=== PATIENT | female | born 1990 | race Caucasian/White ===

== ENCOUNTER 2024-10-05 17:09 | Emergency (ER) | payer BC ==
[~2024-10-05] VITALS: Ht 170.2 cm; Wt 63.0 kg
[2024-10-05] MEDS ORDERED: SIME80TA15 PO (18:20)
[2024-10-05] MEDS ORDERED: DOCU-141 PO (18:20)
[2024-10-05] MEDS ORDERED: MAGN100T6 PO (18:20)
[2024-10-05 18:45] LABS: BASOPHILS % (AUTO) 0.6 % (0.0-2.0); EOSINOPHILS # (AUTO) 0.1 K/uL (0.0-0.7); EOSINOPHILS % (AUTO) 1.6 % (0.0-7.0); HEMATOCRIT 36.8 % (31.2-41.9); HEMOGLOBIN 12.4 g/dL (10.9-14.3); LYMPHOCYTES # (AUTO) 1.6 K/uL (0.8-4.8); LYMPHOCYTES % (AUTO) 37.9 % (20.5-51.5); MEAN CORPUSCULAR HEMOGLOBIN 29.3 uug (24.7-32.8); MEAN CORPUSCULAR HGB CONC 34 g/dL (32.3-35.6); MEAN CORPUSCULAR VOLUME 87.1 fL (75.5-95.3); MONOCYTES # (AUTO) 0.5 K/uL (0.1-1.30); MONOCYTES % (AUTO) 11.7 % (0.0-11.0); NEUTROPHILS # (AUTO) 2.1 K/uL (1.8-8.9); NEUTROPHILS % (AUTO) 48.2 % (38.5-71.5); PLATELET COUNT (AUTO) 262 K/uL (179-408); RED BLOOD CELL COUNT(AUTO) 4.22 MIL/uL (3.63-4.92); RED CELL DISTRIBUTION WIDTH 12.1 % (12.3-17.7); WHITE BLOOD COUNT (AUTO) 4.3 K/uL (3.8-11.8)
[2024-10-05 18:50] LABS: DIFFERENTIAL COMMENT 1
[2024-10-05 18:53] LABS: CALCIUM 8.9 mg/dL (8.5-10.1); CREATININE 0.9 mg/dL (0.6-1.3)
[2024-10-05 18:54] LABS: *URINE HCG, QUAL NEGATIVE (NEGATIVE)
[2024-10-05 21:07] VITALS: BP 110/68; TEMP 98; O2SAT 98
== END 2024-10-05 21:07 | disposition home or self-care (01) ==
LOC: ER 17:09
DX: K59.09 Other constipation (principal); F19.11 Other psychoactive substance abuse, in remission; R10.2 Pelvic and perineal pain; Z87.891 Personal history of nicotine dependence
CPT/HCPCS: 36415; 84443; 84703; 85025; A4606; A4663